=== PATIENT | female | born 1985 | race African-American/Black ===

== ENCOUNTER 2024-04-21 20:44 | Emergency (ER) | payer MEDICAID ==
[~2024-04-21] VITALS: Ht 177.8 cm; Wt 91.0 kg
[2024-04-21 20:51] VITALS: BP 125/81; PULSE 94; RESP 14; TEMP 98.2; O2SAT 98
[2024-04-21] MEDS: DEXAMETHASONE 10 MG/ML VIAL PO ONE (21:39)
[2024-04-21] MEDS ORDERED: PERM60CR4 TP (21:42)
== END 2024-04-21 22:24 | disposition home or self-care (01) ==
LOC: ER 20:44
DX: R21 Rash and other nonspecific skin eruption (principal)
CPT/HCPCS: 99283; J1100

== ENCOUNTER 2024-10-24 11:31 | Emergency (ER) | payer MEDICAID ==
[~2024-10-24] VITALS: Ht 177.8 cm; Wt 90.0 kg
[~2024-10-24 11:31] MED LIST: PERM60CR4 TP
[2024-10-24 11:38] VITALS: O2SAT 100
[2024-10-24] MEDS: METOCLOPRAMIDE HCL 10MG TABLET PO ONE (12:59)
[2024-10-24] MEDS: KETOROLAC 30MG/ML VIAL IM ONE (12:59)
[2024-10-24] MEDS: DIPHENHYDRAMINE 25MG CAPSULE PO ONE (13:04)
[2024-10-24 13:06] LABS: BASOPHILS % 0.7 % (0.0-2.0); HEMOGLOBIN. 12.4 g/dL (12.0-16.0); MEAN CORPUSCULAR HEMOGLOBIN 27.2 pg (28.0-32.0); MEAN CORPUSCULAR HGB CONC 33.6 g/dL (31.0-37.0); MEAN PLATELET VOLUME 8.1 fl (7.4-10.4); MONOCYTES % 8.1 % (2.0-8.0); NEUTROPHILS % 55.2 % (40.0-76.0); PLATELET 386 x1000/uL (130-400); RED BLOOD CELL COUNT 4.56 mill/uL (4.2-5.4); RED CELL DISTRIBUTION WIDTH 14.7 % (11.6-14.6); WHITE BLOOD COUNT 6.6 x1000/uL (4.5-11.0)
[2024-10-24 13:42] LABS: CHLORIDE 107 mEq/L (98-107); POTASSIUM 3.9 mEq/L (3.5-5.1); SODIUM 138 mEq/L (136-145)
[2024-10-24 13:43] LABS: CARBON DIOXIDE 22 mEq/L (21-32)
[2024-10-24 13:44] LABS: CALCIUM 9.4 mg/dL (8.7-10.4)
[2024-10-24 13:49] LABS: CREATININE 0.8 mg/dL (0.6-1.0); GLUCOSE 92 mg/dL (70-105); UREA NITROGEN BLOOD 15 mg/dL (9-23)
[2024-10-24 14:13] LABS: HCG SCREEN NEGATIVE
[2024-10-24] MEDS ORDERED: METO-293 MT (14:48)
[2024-10-24] MEDS ORDERED: IBUP-2029 MT (14:48)
[2024-10-24] MEDS ORDERED: METH-653 MT (14:48)
[2024-10-24 15:19] VITALS: BP 115/74; PULSE 68; RESP 18; TEMP 36.66960; O2SAT 100
== END 2024-10-24 15:19 | disposition home or self-care (01) ==
LOC: ER 11:31
DX: S13.4XXA Sprain of ligaments of cervical spine, initial encounter (principal); G43.909 Migraine, unspecified, not intractable, without status migrainosus; X58.XXXA Exposure to other specified factors, initial encounter; Y93.89 Activity, other specified; Y92.89 Other specified places as the place of occurrence of the external cause; Y99.8 Other external cause status
CPT/HCPCS: 99285; 70450; 80048; 81025; 84703; 85025; 36415; 96372; J1885; Q0163; J8597